=== PATIENT | male | born 1990 | race Two or more races ===

== ENCOUNTER 2021-11-04 21:13 | Emergency (ER) | payer OTHER ==
[~2021-11-04] VITALS: Ht 177.8 cm; Wt 102.1 kg
[2021-11-04] MEDS ORDERED: COZAAR100 MG PO (21:25)
[2021-11-04] MEDS ORDERED: INTESTINEX680 M1 PO (23:27)
== END 2021-11-05 00:01 | disposition home or self-care (01) ==
LOC: ER 21:13
DX: K52.9 Noninfective gastroenteritis and colitis, unspecified (principal); A49.3 Mycoplasma infection, unspecified site; R11.10 Vomiting, unspecified; I10 Essential (primary) hypertension; Z88.6 Allergy status to analgesic agent; Z20.822 Contact with and (suspected) exposure to COVID-19